=== PATIENT | male | born 1940 | race Caucasian/White ===

== ENCOUNTER 2019-12-01 08:46 | Emergency (ER) | payer MEDICARE, OTHER, SELFPAY ==
[2019-12-01 09:00] VITALS: BP 139/68; PULSE 71; RESP 16; TEMP 36.8; O2SAT 94
--- NOTE | 2019-12-01 09:40 | ED.GENADULT ---
HPI - General Adult General Chief complaint: Wound/Laceration Stated complaint: Bump on my butt Time Seen by Provider: 12/01/19 09:27 Source: patient and family Mode of arrival: ambulatory Limitations: no limitations History of Present Illness HPI narrative: Patient is a 78-year-old male who presents to emergency department for evaluation of wound to the buttock that is been present for 1 month draining purulent drainage noted mild aching pain worse with palpation patient has been expressing purulent drainage and notes some blood patient denies any fever chills nausea vomiting notes that his blood sugars are well controlled with yesterday sugar being 140. Patient has not been seen for this complaint Related Data Home Medications Medication Instructions Recorded Confirmed aspirin 81 mg tablet,delayed 81 mg PO DAILY 10/22/19 release ezetimibe 10 mg tablet 10 mg PO DAILY 10/22/19 indomethacin 50 mg capsule PO PRN 10/22/19 lisinopril 20 mg tablet 20 mg PO DAILY 10/22/19 simvastatin 20 mg tablet 20 mg PO DAILY 10/22/19 tamsulosin 0.4 mg capsule 0.4 mg PO DAILY 10/22/19 tiotropium bromide 2.5 2 puff INHALATION QAM 10/22/19 mcg/actuation mist for inhalation tramadol 50 mg tablet 100 mg PO QID PRN tablet 10/22/19 liraglutide 0.6 mg/0.1 mL (18 mg/3 1.8 mg SUB-Q DAILY ml 10/30/19 mL) subcutaneous pen injector metformin 500 mg tablet 500 mg PO BID tablet 10/30/19 10/30/19 omega-3 fatty acids 1,000 mg 1,000 mg PO BID cap 10/30/19 10/30/19 capsule Allergies Allergy/AdvReac Type Severity Reaction Status Date / Time No Known Allergies Allergy Unverified 06/04/19 09:35 Review of Systems Review of Systems: All systems reviewed & are unremarkable except as noted in HPI and below PMFSH Past Medical History Medical History Hyperlipidemia Hypothyroidism Metabolic syndrome Type 2 diabetes mellitus with hyperglycemia Surgical History Surgical History H/O heart artery stent 2001 History of open heart surgery 2004 Social History Social History Smoking status: Never smoker Smoking end date: 10/15/90 Alcohol intake: never Gender identity (if verbalized by the patient): Male Exam Narrative: Exam Narrative: GENERAL: Well-appearing, well-nourished, and in no acute distress. HEAD: Normocephalic, atraumatic. EYES: PERRLA and EOMI. ENT: Nares clear, no rhinorrhea or epistaxis. Mucous membranes moist. CHEST: Clear to auscultation. No respiratory distress. No wheezes rales or rhonchi HEART: Regular rate and rhythm. No murmur heard. EXTREMITIES: Normal range of motion. No edema. SKIN: Warm, dry, no rash. Patient with tender swollen area to the left inner buttock not involving the sulma-rectum with purulent drainage from a pinpoint opening NEURO: No focal deficits. Alert and oriented x3. PSYCH: Normal mood and affect. Course Course Emergency Course: Patient is a 78-year-old male who presents with abscess that was I&D 8 in the emergency department wound culture was obtained patient felt appropriate for reevaluation by primary care on an outpatient basis provided with reasons to return Vital Signs Vital signs: Vital Signs Temperature 98.2 F 12/01/19 09:00 Pulse Rate 71 12/01/19 09:00 Respiratory Rate 16 12/01/19 09:00 Blood Pressure 139/68 12/01/19 09:00 Pulse Oximetry 94 12/01/19 09:00 Temperature 98.2 F 12/01/19 09:00 Pulse Rate 71 12/01/19 09:00 Respiratory Rate 16 12/01/19 09:00 Blood Pressure 139/68 12/01/19 09:00 Pulse Oximetry 94 12/01/19 09:00 Procedures Abscess I/D other: Date of Incision: 12/01/19 Time of Incision: 10:15 Side (if applicable): left Local Anesthetic: lidocaine 1% Technique: incised with #11 blade Amount of fluid expressed
[2019-12-01 09:58] LABS: Basophils Absolute Auto 0.1 K/mm3 (0.0-0.1); Basophils Percent Auto 0.9 % (0.2-1.2); Eosinophils Absolute Auto 0.4 K/mm3 (0-0.3); Eosinophils Percent Auto 4.4 % (0-4.4); Hematocrit 40.8 % (42.0-52.0); Hemoglobin 12.7 g/dL (14.0-18.0); Immature Granulocyte Absolute 0.08 K/mm3 (0.00-0.031); Immature Granulocyte Percent A 0.9 % (0-0.5); Lymphocytes Absolute Auto 1.67 K/mm3 (0.9-3.2); Lymphocytes Percent Auto 18.4 % (18.3-44.2); Mean Corpuscular HGB Conc 31.1 g/dl (32-36); Mean Corpuscular Hemoglobin 27.4 pg (26-34); Mean Corpuscular Volume 88.1 fl (80-100); Mean Platelet Volume 8.9 fl (7.4-10.4); Monocytes Absolute Auto 0.6 K/mm3 (0.1-0.6); Monocytes Percent Auto 6.2 % (2.6-8.5); Neutrophils Absolute Auto 6.3 K/mm3 (1.3-6.7); Neutrophils Percent Auto 69.2 % (45.5-73.1); Platelet Count Result 178 k/mm3 (150-375); Red Blood Count 4.63 M/mm3 (4.6-6.20); Red Cell Distribution Width 15.3 % (11.5-14.5); White Blood Count 9.1 K/mm3 (4.5-10.0)
[2019-12-01 10:10] VITALS: BP 122/73; PULSE 41; RESP 21; TEMP 36.4; O2SAT 89
[2019-12-01 10:12] LABS: Blood Urea Nitrogen 42 mg/dL (9-20); Calcium 9.3 mg/dL (8.4-10.2); Carbon Dioxide 26 mmol/L (22-30); Chloride 99 mmol/L (98-107); Estimated CRCL calculation 48 ml/min; Estimated Glomerular Filt Rate 42; Glucose 134 mg/dL (75-110); Potassium 4.9 mmol/L (3.4-5.0); Sodium 140 mmol/L (137-145)
[2019-12-01 10:18] VITALS: PULSE 41
--- NOTE | 2019-12-01 10:18 | PC.NURSE ---
Patient noted to have slow and irregular radial pulse. Monitor applied, patient noted to have a sinus tea with frequent unifocal PVCs and occasionally enters a bigeminal rhythm. Patient does not have any complaints. He is not aware of being told he has any dysrhythmia. He is also noted to have a pulse ox of 89% on room air. Patient tells me that he has low oxygen normally but can not tell me why. He does use home oxygen bleed in with CPAP 2 liter. He tells me that he occasionally uses oxygen during the day at 2 liters but does not do this regularly although he tells me he is supposed to.
--- NOTE | 2019-12-01 10:20 | PC.NURSE ---
EDPA has drained and packed wound to right buttock. antibiotic ointment and gauze dressing in place at this time. Patient educated on wound care and provided instructions for dressing changes and follow up with primary. There is minor sanguineous drainage at this time.
== END 2019-12-01 10:35 | disposition home or self-care (01) ==
PROVIDERS: Emergency Medicine Emergency Medical Services; Emergency Provider Family Medicine; PCP Internal Medicine
DX: L02.31 Cutaneous abscess of buttock (principal); E78.5 Hyperlipidemia, unspecified; E03.9 Hypothyroidism, unspecified; E11.65 Type 2 diabetes mellitus with hyperglycemia; Z79.84 Long term (current) use of oral hypoglycemic drugs; Z98.61 Coronary angioplasty status
CPT/HCPCS: 10061; 36415; 80048; 85025; 87070; 87075; 87147; 87186; 87205; 99283

== ENCOUNTER → 2019-12-10 09:23 | Outpatient (CLI) | payer MEDICARE, OTHER, SELFPAY ==
--- NOTE | ~2019-12-10 | XR_ITS ---
EXAMINATION: XR lumbar spine 6V w bending DATE: 12/10/2019 09:59 INDICATION: Other spondylosis, lumbar region TECHNIQUE: Anteroposterior, lateral in neutral, flexion and extension, and bilateral oblique views of the lumbar spine, and cone-down lateral view of the lumbosacral junction were obtained. COMPARISON: 08/25/2014 FINDINGS: There is no fracture. The vertebral body heights and alignment are normal. There is mild lo ss of intervertebral disc space height throughout the lumbar spine. Lumbar dextrocurvature is again n oted. There is severe facet osteoarthritis of the lower lumbar spine. Small degenerative osteophytes project from the anterior endplates of multiple vertebral bodies. There has been interval insertion o f a neurostimulator device in the left posterior gluteal subcutaneous tissues with its leads entering the central spinal canal at the L1-2 level. Calcified atherosclerosis is noted. There is no abnormal laxity with flexion or extension. IMPRESSION: 1. Interval insertion of a neurostimulator device, otherwise moderate lumbar spondylosis without acut e findings or significant interval change. Reviewed, dictated and finalized at location A. ER IMPRESSION: 1. Interval insertion of a neurostimulator device, otherwise moderate lumbar sp ondylosis without acute findings or significant interval change.
== END ==
PROVIDERS: PCP Nurse Practitioner Family; Visit Provider Nurse Practitioner Family
DX: M47.896 Other spondylosis, lumbar region (principal)
CPT/HCPCS: 72114

== ENCOUNTER → 2020-04-23 09:34 | Outpatient (CLI) | payer MEDICARE, OTHER, SELFPAY ==
--- NOTE | ~2020-04-23 | CT_ITS ---
EXAMINATION: CT lumbar spine wo con DATE: 04/23/2020 09:52 INDICATION: Low back pain. Lumbar spondylosis without myelopathy or radiculopathy. TECHNIQUE: Computed tomography (CT) of the lumbar spine was performed without intravenous contrast. A utomated exposure control and iterative reconstruction technique were employed. The dose-length produ ct was 1009.52 mGy-cm. COMPARISON: CT lumbar spine 07/12/2017 FINDINGS: There is 4 degrees dextrocurvature of lumbar spine. Vertebral body heights are normal. Ther e is mildly decreased disc height at L2-L3 and L4-L5. There are epidural electrodes with tips in thor acic spine. The following disc levels are specifically discussed: L1-L2: The disc is bulging. There is mild bilateral facet joint osteoarthritis. There is mild bilater al neural foraminal stenosis. There is mild central canal stenosis. L2-L3: The disc is bulging. There is mild bilateral facet joint osteoarthritis. There is moderate deyanira ateral neural foraminal stenosis. There is mild central canal stenosis. L3-L4: The disc is bulging. There is mild right and moderate left facet joint osteoarthritis. There i s moderate bilateral neural foraminal stenosis. There is mild central canal stenosis. L4-L5: The disc is bulging with superimposed right subarticular zone extrusion. There is severe bilat eral facet joint osteoarthritis. There is moderate bilateral neural foraminal stenosis. There is mode rate central canal stenosis. L5-S1: The disc is bulging. There is severe right and moderate left facet joint osteoarthritis. There is mild bilateral neural foraminal stenosis. There is mild central canal stenosis. IMPRESSION: 1. Moderate lumbar spondylosis with interval worsening at L4-L5. Reviewed, dictated and finalized at location A.
== END ==
PROVIDERS: PCP Internal Medicine; Visit Provider Nurse Practitioner Family
DX: M47.817 Spondylosis without myelopathy or radiculopathy, lumbosacral region (principal)
CPT/HCPCS: 72131

== ENCOUNTER → 2021-01-15 05:23 | Outpatient (CLI) | payer MEDICARE, OTHER, SELFPAY ==
[2021-01-15 19:34] LABS: SARS-CoV-2 RNA PCR Negative
== END ==
PROVIDERS: PCP Internal Medicine; Visit Provider Internal Medicine Gastroenterology
DX: Z01.812 Encounter for preprocedural laboratory examination (principal); Z20.822 Contact with and (suspected) exposure to COVID-19
CPT/HCPCS: C9803; U0003; U0005

== ENCOUNTER 2021-01-18 01:12 | Day surgery (SDC) | payer MEDICARE, OTHER, SELFPAY ==
[2021-01-04 14:00] VITALS: BMI 38.5
[2021-01-18 08:21] VITALS: BP 148/99; PULSE 82; RESP 20; TEMP 36.3; O2SAT 95; BMI 38.2
[2021-01-18] MEDS: LACTATED RINGERS 1,000 ML 150 ML IV CONT (08:35)
[2021-01-18 08:40] LABS: Glucose Point of Care 152 (65-105)
--- NOTE | 2021-01-18 08:55 | WPDANESEPPF ---
Anes - Initial Pre Proc Eval Procedure: Operation Date: 01/18/21 09:30 Proposed Procedures p Colonoscopy - Neymar Blcakwell MD Date/Time: 01/18/21 08:55 Surgeon: Neymar Blackwell MD Pre Op Diagnosis: diarrhea Patient Data Age: 80 Gender: M Height: 5 ft 10 in Weight: 121 kg Last Vital Signs Temp 97.3 F L 01/18/21 08:21 Pulse 82 01/18/21 08:21 Resp 20 01/18/21 08:21 BP 148/99 H 01/18/21 08:21 Pulse Ox 95 01/18/21 08:21 Allergies Allergy/AdvReac Type Severity Reaction Status Date / Time No Known Allergies Allergy Verified 01/18/21 08:20 Home Medications Medication Instructions Recorded Confirmed Type aspirin 81 mg tablet,delayed 81 mg PO DAILY 10/22/19 01/04/21 History release simvastatin 20 mg tablet 20 mg PO DAILY 10/22/19 01/04/21 History omega-3 fatty acids 1,000 mg 1,000 mg PO BID cap 10/30/19 01/04/21 History capsule cholecalciferol (vitamin D3) 25 25 mcg PO DAILY 05/12/20 01/04/21 History mcg (1,000 unit) capsule insulin regular hum U-500 conc 75 unit SUB-Q BID 90 Days #9 syr 09/01/20 01/04/21 Rx semaglutide 1 mg/dose (2 mg/1.5 1 mg SUBCUT WEEKLY 84 Days #9 ml 09/01/20 01/04/21 Rx mL) subcutaneous pen injector ezetimibe 10 mg tablet 10 mg PO DAILY #90 tablet 09/20/20 01/04/21 Rx allopurinol 100 mg tablet 100 mg PO DAILY #90 tablet 10/22/20 01/04/21 Rx sodium,potassium,mag sulfates 17.5 See Rx Instructions PO .COMPLEX 12/15/20 Rx gram-3.13 gram-1.6 gram oral soln #354 ml allopurinol 300 mg tablet See Rx Instructions .ROUTE 01/03/21 01/04/21 Rx .COMPLEX #90 tablet bumetanide 2 mg tablet See Rx Instructions .ROUTE 01/03/21 01/04/21 Rx .COMPLEX #90 tablet levothyroxine 150 mcg tablet See Rx Instructions .ROUTE 01/03/21 01/04/21 Rx .COMPLEX #90 tablet nebivolol 5 mg tablet See Rx Instructions .ROUTE 01/03/21 01/04/21 Rx .COMPLEX #90 tablet omeprazole 20 mg capsule,delayed See Rx Instructions .ROUTE 01/03/21 01/04/21 Rx release .COMPLEX #90 cap tamsulosin 0.4 mg capsule See Rx Instructions .ROUTE 01/03/21 01/04/21 Rx .COMPLEX #90 cap tiotropium bromide 2.5 See Rx Instructions .ROUTE 01/03/21 01/04/21 Rx mcg/actuation mist for inhalation .COMPLEX #8 g Laboratory Tests 01/18/21 08:38 POC Capillary Glucose 152 mg/dl H mg/dl (65-105) Patient hx anesthesia problems: none Family hx anesthesia problems: none [facility] Past Medical History Medical History (Updated 12/10/20 @ 10:55 by Kailey Armando APN-Lashaun) Diarrhea Essential (primary) hypertension GERD (gastroesophageal reflux disease) Hyperlipidemia Hypothyroidism Metabolic syndrome Type 2 diabetes mellitus with hyperglycemia Surgical History Surgical History H/O heart artery stent 2001 History of left knee surgery 2019 History of open heart surgery 2004 Family History Family History Father Hypertension Mother Hypertension Grandparent Diabetes mellitus Social History Social History (Updated 12/10/20 @ 10:10 by Radha [facility]) Smoking packs per day: 2 Smoking cigarettes per day: 40.0 Years smoked: 10 Smoking pack-years: 20.00 Smoking status: Former smoker Tobacco type: cigarettes Smoking end date: 10/15/90 Alcohol intake: former Substance use: never Substance use type: does not use Living arrangements: with family Gender identity (if verbalized by the patient): Male Spiritual care concerns: No Anes - Eval Final PreProcedure Day of Procedure 01/18/21 08:55 Patient weight: obese Heart: regular rate and rhythm Lungs: clear to auscultation Airway: Mallampati scale class III Neurological: alert and oriented Last oral intake: >/= 8 hours ASA classification: IV Emergent: no Anesthetic plan: proceed Anesthesia type and monitoring: general GIVS and standard monitoring Infor
--- NOTE | 2021-01-18 09:26 | PM.HPGS ---
History of Present Illness History of Present Illness Consent: Risks, benefits, and alternatives have been discussed and questions answered. Patient agrees to proceed with procedure. Chief complaint: diarrhea Narrative: Braulio Lisa is a 80 year old male with diarrhea on meds but still symptomatic, last colonoscopy about 20 years ago. Review of Systems Constitutional: Constitutional: Denies headache(s) and Denies weakness Eyes: Eyes: Denies blurry vision ENT: Reports Normal hearing present, Denies headache(s) and Denies neck pain Cardiovascular: Cardiovascular: Denies chest pain and Denies dyspnea Respiratory: Respiratory: Denies dyspnea Gastrointestinal: Gastrointestinal: Reports no additional gastrointestinal complaints Genitourinary: Genitourinary: Denies dysuria Musculoskeletal: Musculoskeletal: Denies neck pain Integumentary/Breasts: Skin/Breast: Denies dry skin Neurologic: Reports Normal hearing present, Denies headache(s) and Denies weakness Psychiatric: Psychiatric: Denies anxiety Endocrine: Endocrine: Denies change in body appearance Hematologic/Lymphatic: Hematologic/Lymphatic: Denies easy bleeding Allergic/Immunologic: Allergic/Immunologic: Denies urticaria PMF Past Medical History Medical History (Updated 12/10/20 @ 10:55 by GAY Mccall) Diarrhea Essential (primary) hypertension GERD (gastroesophageal reflux disease) Hyperlipidemia Hypothyroidism Metabolic syndrome Type 2 diabetes mellitus with hyperglycemia Surgical History Surgical History H/O heart artery stent 2002 History of left knee surgery 2019 History of open heart surgery 2004 Family History Family History Father Hypertension Mother Hypertension Grandparent Diabetes mellitus Social History Social History (Updated 12/10/20 @ 10:10 by Radha [facility] CMA) Smoking packs per day: 2 Smoking cigarettes per day: 40.0 Years smoked: 10 Smoking pack-years: 20.00 Smoking status: Former smoker Tobacco type: cigarettes Smoking end date: 10/15/90 Alcohol intake: former Substance use: never Substance use type: does not use Living arrangements: with family Gender identity (if verbalized by the patient): Male Spiritual care concerns: No Meds Home Medications and Allergies Home Medications Medication Instructions Recorded Confirmed Type aspirin 81 mg tablet,delayed 81 mg PO DAILY 10/22/19 01/04/21 History release simvastatin 20 mg tablet 20 mg PO DAILY 10/22/19 01/04/21 History omega-3 fatty acids 1,000 mg 1,000 mg PO BID cap 10/30/19 01/04/21 History capsule cholecalciferol (vitamin D3) 25 25 mcg PO DAILY 05/12/20 01/04/21 History mcg (1,000 unit) capsule insulin regular hum U-500 conc 75 unit SUB-Q BID 90 Days #9 syr 09/01/20 01/04/21 Rx semaglutide 1 mg/dose (2 mg/1.5 1 mg SUBCUT WEEKLY 84 Days #9 ml 09/01/20 01/04/21 Rx mL) subcutaneous pen injector ezetimibe 10 mg tablet 10 mg PO DAILY #90 tablet 09/20/20 01/04/21 Rx allopurinol 100 mg tablet 100 mg PO DAILY #90 tablet 10/22/20 01/04/21 Rx sodium,potassium,mag sulfates 17.5 See Rx Instructions PO .COMPLEX 12/15/20 Rx gram-3.13 gram-1.6 gram oral soln #354 ml allopurinol 300 mg tablet See Rx Instructions .ROUTE 01/03/21 01/04/21 Rx .COMPLEX #90 tablet bumetanide 2 mg tablet See Rx Instructions .ROUTE 01/03/21 01/04/21 Rx .COMPLEX #90 tablet levothyroxine 150 mcg tablet See Rx Instructions .ROUTE 01/03/21 01/04/21 Rx .COMPLEX #90 tablet nebivolol 5 mg tablet See Rx Instructions .ROUTE 01/03/21 01/04/21 Rx .COMPLEX #90 tablet omeprazole 20 mg capsule,delayed See Rx Instructions .ROUTE 01/03/21 01/04/21 Rx release .COMPLEX #90 cap tamsulosin 0.4 mg capsule See Rx Instructions .ROUTE 01/03/21 01/04/21 Rx .COMPLEX #90 cap tiotropium bromide 2.5 See Rx Instructio
[2021-01-18] MEDS: CENTRAL LINE FLUSH 3 ML XX (09:56)
[2021-01-18 10:39] VITALS: BP 114/64; PULSE 58; RESP 18; O2SAT 90
[2021-01-18 10:49] VITALS: BP 137/72; PULSE 56; RESP 18; O2SAT 93
[2021-01-18 10:52] LABS: Glucose Point of Care 143 (65-105)
[2021-01-18 10:59] VITALS: BP 135/94; PULSE 69; RESP 20; O2SAT 90
== END 2021-01-18 12:02 | disposition home or self-care (01) ==
PROVIDERS: PCP Internal Medicine; Visit Provider Internal Medicine Gastroenterology
PROC: 0DJD8ZZ Inspection of Lower Intestinal Tract, Via Natural or Artificial Opening Endoscopic (ICD-10-PCS; CPT 45378; principal; 2021-01-18 09:30)
DX: Z12.11 Encounter for screening for malignant neoplasm of colon (principal); R19.7 Diarrhea, unspecified; K57.30 Diverticulosis of large intestine without perforation or abscess without bleeding; D12.2 Benign neoplasm of ascending colon; K64.4 Residual hemorrhoidal skin tags; I10 Essential (primary) hypertension; E78.5 Hyperlipidemia, unspecified; E03.9 Hypothyroidism, unspecified; K21.9 Gastro-esophageal reflux disease without esophagitis; E11.9 Type 2 diabetes mellitus without complications; Z79.82 Long term (current) use of aspirin; Z79.4 Long term (current) use of insulin; Z95.5 Presence of coronary angioplasty implant and graft; Z87.891 Personal history of nicotine dependence; E66.9 Obesity, unspecified; Z68.38 Body mass index [BMI] 38.0-38.9, adult
CPT/HCPCS: 45381; 45385; 45380; 88305; J2704; J7120

== ENCOUNTER → 2022-12-01 12:58 | Outpatient (CLI) | payer MEDICARE, OTHER, SELFPAY ==
--- NOTE | ~2022-12-01 | CT_ITS ---
Noncontrast CT scan of the lumbar spine CLINICAL HISTORY: Back pain, spondylosis COMPARISON: 04/23/2020 TECHNIQUE: Axial noncontrast imaging of the lumbar spine was performed. Sagittal and coronal reformat samina images were demonstrated. Dose reduction technique was used on this scan by utilizing automated e xposure control and iterative reconstruction technique. FINDINGS: No fracture identified. Minimal grade 1 anterolisthesis of L4 over L5 present. There is mod erate degenerative disc change at the L2-L3, L3-L4, and L4-L5 discs. At L1-L2, there is no definite disc bulge or herniation. No spinal canal stenosis or definite neural foraminal narrowing identified. At L2-L3, there is probable mild disc bulge and mild facet joint degenerative change. Possible minima l central canal stenosis. There is moderate bilateral neural foraminal narrowing. At L3-L4, there is disc bulge and facet joint hypertrophy, with probable mild central canal stenosis. There is mild to moderate bilateral neural foraminal narrowing. At L4-L5, there is diffuse disc bulge with facet joint arthropathy. There is probable moderate to sev ere thecal sac compression/spinal canal stenosis. There is mild to moderate bilateral neural foramina l narrowing. At L5-S1, there is minimal disc bulge. No ramona spinal canal stenosis. No definite neural foraminal n arrowing. Neurostimulator is present, with leads extending into the spinal canal at the L1-L2 level, and extend ing superiorly. IMPRESSION: Degenerative spondylosis, as detailed above. Probable moderate to severe thecal sac compression/spina l canal stenosis at L4-L5. Probable mild central canal stenosis at L2-L3 and L3-L4. Multilevel neural foraminal narrowing, as detailed above. Minimal grade 1 anterolisthesis of L4 over L5. Reviewed, dictated and finalized at location . [facility] ADMINISTRATOR IMPRESSION: Degenerative spondylosis, as detailed above. Probable moderate to severe thecal sac compression/spinal canal stenosis at L4-L5. Probable mild central canal st enosis at L2-L3 and L3-L4. Multilevel neural foraminal narrowing, as detailed above. Minimal grade 1 anterolisthesis of L4 over L5.
== END ==
PROVIDERS: PCP Internal Medicine; Visit Provider Nurse Practitioner Family
DX: M54.50 Low back pain, unspecified (principal); M47.816 Spondylosis without myelopathy or radiculopathy, lumbar region
CPT/HCPCS: 72131

== ENCOUNTER 2024-03-27 07:36 | Outpatient (CLI) | payer MEDICARE, OTHER, SELFPAY ==
--- NOTE | ~2024-03-27 | XR_ITS ---
XR chest 2V 03/27/2024 08:45 Indication: Cough Procedure: 2 view chest Comparison: Comparison to multiple prior studies sequentially, with oldest reviewed study dated 05/2012. Findings: Cardiomegaly. Status post median sternotomy for CABG. Basilar atelectasis. No focal pneumon ia, edema or effusion. Impression: 1: No acute cardiopulmonary disease. Reviewed, dictated and finalized at location B. Impression: 1: No acute cardiopulmonary disease.
== END 2024-03-27 07:37 ==
PROVIDERS: PCP Family Medicine; Visit Provider Nurse Practitioner
DX: R05.9 Cough, unspecified (principal)
CPT/HCPCS: 71046

== ENCOUNTER 2025-02-20 11:11 | Outpatient (CLI) | payer MEDICARE, OTHER, SELFPAY ==
--- NOTE | ~2025-02-20 | CT_ITS ---
Noncontrast CT scan of the lumbar spine CLINICAL HISTORY: Lumbar radiculopathy TECHNIQUE: Axial noncontrast imaging of the lumbar spine was performed. Sagittal and coronal reformat samina images were constructed. Dose reduction technique was used on this scan by utilizing automated ex posure control and iterative reconstruction technique. The dose-length product (DLP) was 967.04 mGy-c m. FINDINGS: No acute fracture seen. There is 5 mm anterolisthesis of L4 over L5. At L1-L2, there is no disc bulge or herniation. There is moderate facet arthropathy. Intrathecal neur ostimulator wires enter distal. There is no spinal canal stenosis. No neural foraminal narrowing evid ent. At L2-L3, there is moderate to advanced degenerative disc narrowing. There is disc bulge and facet ar thropathy. There is probable mild to moderate central canal stenosis/thecal sac compression. There is severe left neural foraminal narrowing, and moderate right neural foraminal narrowing. At L3-L4, there is moderate degenerative disc narrowing. There is disc bulge and moderate facet arthr opathy/hypertrophy, with mild central canal stenosis. There is moderate to advanced bilateral neural foraminal narrowing. At L4-L5, there is diffuse disc bulge/uncovering with severe facet arthropathy, resulting in severe s ellie canal stenosis/thecal sac compression. There is severe bilateral neural foraminal compromise. At L5-S1, there is mild disc bulge with mild facet arthropathy. No central canal stenosis. There is m ild left neural foraminal narrowing. Paravertebral soft tissues are unremarkable. Impression: Advanced degenerative spondylosis, as detailed above, worst at L4-L5. 5 mm anterolisthesis of L4 over L5. Reviewed, dictated and finalized at location M. Impression: Advanced degenerative spondylosis, as detailed above, worst at L4-L5. 5 mm anterolisthesis of L4 over L5.
== END 2025-02-20 11:12 | disposition home or self-care (01) ==
LOC: MICIMG 11:13
PROVIDERS: PCP Family Medicine; Visit Provider Nurse Practitioner Family
DX: M47.896 Other spondylosis, lumbar region (principal); M43.16 Spondylolisthesis, lumbar region
CPT/HCPCS: 72131